=== PATIENT | female | born 1960 | race Caucasian/White ===

== ENCOUNTER 2024-01-20 10:12 | Day surgery (SDC) | payer OTHER ==
[2024-01-14 14:17] VITALS: BMI 34.5
[2024-01-20 10:37] VITALS: TEMP 97.5
[2024-01-20 13:17] VITALS: RESP 18
[2024-01-20 13:24] VITALS: BP 128/78; PULSE 73
== END 2024-01-20 13:05 | disposition home or self-care (01) ==
LOC: FASU-ENDO 10:12
PROVIDERS: ATTEND Internal Medicine Gastroenterology
PROC: 0DBN8ZX Excision of Sigmoid Colon, Via Natural or Artificial Opening Endoscopic, Diagnostic (ICD-10-PCS; 2024-01-20)
PROC: 0DBP8ZX Excision of Rectum, Via Natural or Artificial Opening Endoscopic, Diagnostic (ICD-10-PCS; principal; 2024-01-20 12:09)
DX: Z12.11 Encounter for screening for malignant neoplasm of colon (principal); K52.89 Other specified noninfective gastroenteritis and colitis; Z87.19 Personal history of other diseases of the digestive system
CPT/HCPCS: 88305-TC